=== PATIENT | female | born 1935 | race Caucasian/White ===

== ENCOUNTER → 2017-09-03 | Outpatient (REF) ==
[2017-09-03 11:45] LABS: THYROID STIMULATING HORMONE 1.74 uIU/mL (0.465-4.680)
== END ==
LOC: ZLAB.WCH 11:04
PROVIDERS: Internal Medicine
DX: Z01.89 Encounter for other specified special examinations (principal)

== ENCOUNTER → 2018-09-05 | Outpatient (REF) ==
[2018-09-05 19:25] LABS: THYROID STIMULATING HORMONE 0.176 uIU/mL (0.465-4.680)
== END ==
LOC: ZLAB.WCH 18:24
PROVIDERS: Internal Medicine
DX: Z01.89 Encounter for other specified special examinations (principal)

== ENCOUNTER → 2018-11-02 | Outpatient (REF) | LOC: ZLAB.WCH 19:23 | DX: Z01.89 Encounter for other specified special examinations (principal) ==